=== PATIENT | male | born 1970 ===

== ENCOUNTER 2019-09-17 14:52 | Outpatient (CLI) | payer OTHER ==
--- NOTE | 2019-09-17 15:11 | RAD ---
EXAM: 3 views of the cervical spine HISTORY: Neck pain COMPARISON: None FINDINGS: AP, lateral, and open mouth odontoid views of the cervical spine shows normal height and al ignment of the vertebral bodies and intervertebral discs without fracture or subluxation. Mild degenerative changes are seen. No prevertebral soft tissue swelling is seen. IMPRESSION: Mild degenerative changes of the cervical spine without acute osseous abnormality.
--- NOTE | 2019-09-17 15:13 | RAD ---
EXAM: 3 views of the left shoulder HISTORY: Shoulder pain COMPARISON: None FINDINGS: There is no evidence of acute fracture or dislocation. No degenerative changes are present. No soft tissue swelling is seen. The visualized thorax is unremarkable. IMPRESSION: No evidence of acute osseous abnormality.
== END 2019-09-17 14:53 | disposition home or self-care (01) ==
LOC: RAD-FRANK 14:52
PROVIDERS: ATTEND Nurse Practitioner Family
DX: M25.512 Pain in left shoulder (principal); M54.2 Cervicalgia; M25.511 Pain in right shoulder; M47.812 Spondylosis without myelopathy or radiculopathy, cervical region
CPT/HCPCS: 72040